=== PATIENT | female | born 1990 | race Caucasian/White ===

== ENCOUNTER 2016-10-21 11:40 | Emergency (ER) | payer OTHER ==
[2016-10-21 11:57] VITALS: BP 134/80; PULSE 96; RESP 18; TEMP 99.1; O2SAT 96
--- NOTE | 2016-10-21 12:11 | EDPHY ---
H & P Stated Complaint: ABD PAIN FOR 1 MONTH, DENIES FEVERS, SOME DIARRHEA Time Seen by Provider: 10/21/16 11:46 HPI/ROS: CHIEF COMPLAINT: Abdominal pain History by patient HISTORY OF PRESENT ILLNESS: 26-year-old woman with no prior history of abdominal surgeries presents complaining of 1 month of intermittent abdominal bloating, increased flatulence, frequent stools and abdominal discomfort. She states that she saw her OBGYN doctor approximately a week after these symptoms started who thought maybe the patient had an abdominal wall hernia because they felt a "lump on "in the patient's left upper quadrant the. Patient states that lump has resolved but she sometimes feels that now and the middle or in her right upper quadrant. She has also had some urinary frequency but no dysuria, urgency or hematuria. She denies any back pain. She denies any vaginal bleeding and states that her period is due today because she just took the placebo pills of her oral contraceptive pills.. She did have a recent change in the brand of control pills that she takes and missed a few days. She is sexually active. She denies any vaginal discharge. She was tested for sexually transmitted diseases a week or 2 ago and was negative. She has had no fever or chills. There is no associated nausea or vomiting. She is able to eat without difficulty and has a good appetite. Although she feels bloated she has not gained or lost any weight. REVIEW OF SYSTEMS: As in HPI, and all other systems reviewed and are negative Source: Patient - Personal History LMP (Females 10-55): 22-28 Days Ago Tetanus Vaccine Date: <10YRS - Medical/Surgical History Hx Asthma: No Hx Chronic Respiratory Disease: No Hx Diabetes: No Hx Cardiac Disease: No Hx Renal Disease: No Hx Cirrhosis: No Hx Alcoholism: No Hx HIV/AIDS: No Hx Splenectomy or Spleen Trauma: No Other PMH: OVARIAN CYST, MIGRAINES. KIDNEY STONE. SKIN GRAFTS FOOT. DENTAL IMPLANTS - Social History Smoking Status: Current every day smoker - Physical Exam Exam: General Appearance: Alert, well-appearing, comfortable. Eyes: Pupils equal and round no pallor or injection. ENT, Mouth: Mucous membranes moist. Respiratory: Normal, effort, lungs are clear to auscultation. No wheezes, rales or rhonchi. Cardiovascular: Regular rate and rhythm. S1, S2, no murmurs, gallops or rubs appreciated Gastrointestinal: bowel sounds present, Abdomen is soft and nondistended, no masses Back: No CVA tenderness, no bony tenderness Neurological: Awake, alert and oriented x 3, no pronator drift, normal gait, no pronator drift Skin: Warm and dry, no rashes. Musculoskeletal: No deformities or tenderness. Extremitie:s full range of motion, no edema Psychiatric: Patient has normal affect, there is no agitation. Constitutional: Initial Vital Signs Temperature (C) 37.3 C 10/21/16 11:53 Heart Rate 96 10/21/16 11:53 Respiratory Rate 18 10/21/16 11:53 Blood Pressure 134/80 H 10/21/16 11:53 O2 Sat (%) 96 10/21/16 11:53 O2 Delivery Mode Room Air Allergies/Adverse Reactions: acetaminophen [From Excedrin Migraine] Allergy (Verified 10/21/16 11:52) aspirin [From Excedrin Migraine] Allergy (Verified 10/21/16 11:52) caffeine [From Excedrin Migraine] Allergy (Verified 10/21/16 11:52) hydrocodone Allergy (Verified 10/21/16 11:52) Home Medications: Medication Instructions Recorded Ethinyl Estradiol/Drospirenone 1 each PO 07/20/13 [Mlilie 28 Tablet] Dicyclomine [Bentyl 20 MG (*)] 20 mg PO QID #28 tab 10/21/16 Medical Decision Making ED Course/Re-evaluation: 26-year-old woman presents with 1 month of abdominal bloating, flatulence and abdominal pain a variable location. She was concerned about abdominal wall hernia however there is no evidence for this on exam. Her vital signs are stable her exam is unremarkable. test was negative. Urinalysis showed no evidence of infection or blood. Patient was also wondering if she has endometriosis and if she should have a laparoscopy. Given that her symptoms are not severe I recommended against laparoscopy at this time. I did recommend she discuss this with her OBGYN provider I suspect the patient's symptoms are due to irritable bowel syndrome. We discussed this diagnosis and treatment. I recommend he follow up with her primary care physician. - Data Points Laboratory Results: 10/21/16 10/21/16 12:15 12:15 Urine Color YELLOW Urine Appearance CLEAR Urine pH 6.0 (5.0-7.5) Ur Specific [place] 1.020 (1.002-1.030) Urine Protein NEGATIVE (NEGATIVE) Urine Ketones NEGATIVE (NEGATIVE) Urine Blood NEGATIVE (NEGATIVE) Urine Nitrate NEGATIVE (NEGATIVE) Urine Bilirubin NEGATIVE (NEGATIVE) Urine Urobilinogen 0.2 EU EU (0.2-1.0) Ur Leukocyte Esterase NEGATIVE (NEGATIVE) Urine Glucose NEGATIVE (NEGATIVE) Urine Test NEGATIVE Departure - Departure Disposition: Home, Routine, Self-Care Clinical Impression: Abdominal pain Qualifiers: Abdominal location: generalized Qualified Code(s): R10.84 - Generalized abdominal pain Condition: Good Instructions: Irritable Bowel Syndrome (ED) Additional Instructions: You were seen by Dr. Ana Tracey today. Your test was negative. Your exam is normal today. Try taking probiotics for your bloating and abdominal discomfort. Try also Bentyl as needed. Follow up with her primary care physician or your OBGYN. Return for any worsening or new concerns. Referrals: NONE *PRIMARY CARE P,. [Primary Care Provider] - As per Instructions Prescriptions: Dicyclomine [Bentyl 20 MG (*)] 20 mg PO QID #28 tab
[2016-10-21 12:30] LABS: COLOR YELLOW; LEUKOCYTE ESTERASE,URINE NEGATIVE (NEGATIVE); NITRITE,URINE NEGATIVE (NEGATIVE)
== END 2016-10-21 13:05 | disposition home or self-care (01) ==
LOC: CED 11:40
DX: R10.84 Generalized abdominal pain (principal); F17.200 Nicotine dependence, unspecified, uncomplicated
CPT/HCPCS: 81003-PO; 81025-PO